=== PATIENT | female | born 1980 | race Caucasian/White ===

== ENCOUNTER → 2017-01-16 | Day surgery (SDC) | payer BC, MEDICAID, OTHER ==
--- NOTE | 2017-01-15 09:11 | MH ---
cc: AV MONTGOMERY MD DATE OF ADMISSION: 01/16/2017 REASON FOR ADMISSION This patient is a 36-year-old white female. She is being admitted to [facility] for elective uterine ablation. HISTORY OF PRESENT ILLNESS The patient is well-known to our practice. She recently came into the office complaining of extremely heavy periods with cramping. We followed up with pelvic sonogram which revealed a 10 cm cavity and a small fibroid situated in the subserosal area. We then discussed with her different modes of therapy for her bleeding and anemia and she elected to go with endometrial ablation with the knowledge that the surgery would have its limitations because of her uterine fibroid. PAST MEDICAL HISTORY Significant that the patient has had history of anemia because her heavy bleeding. GYNECOLOGIC HISTORY Significant that she is a 4, para 2 with a history of two vaginal births. PAST SURGICAL HISTORY Includes history of tonsillectomy, also history of appendectomy. She also underwent tubal ligation. FAMILY HISTORY Significant that her both father and mother have history of cancer and diabetes, and her father has a history of hypertension. SOCIAL HISTORY She is a non-smoker and does not admit to any alcohol abuse. REVIEW OF SYSTEMS Essentially noncontributory. PHYSICAL EXAMINATION GENERAL: The patient is well-developed, well-nourished, in no acute distress. VITAL SIGNS: Within normal limits. HEENT: Negative. CHEST: Clear to auscultation. CARDIOVASCULAR: Regular rate. ABDOMEN: Soft. Bowel sounds were positive. PELVIC: Examination revealed a slightly enlarged uterus. There is no adnexal masses palpable. EXTREMITIES: Reveal no cyanosis, clubbing or edema. NEUROPSYCHIATRIC: The patient is oriented x 3. No gross neurocranial deficit. IMPRESSION ON ADMISSION Fibroid uterus, hypermenorrhea and anemia. PLAN Endometrial ablation with using either the balloon ablation unit or the NovaSure ablation. Av Montgomery MD JSG/TLL /8:36 AM /8:44 AM
[~2017-01-16] VITALS: Ht 157.5 cm; Wt 60.4 kg
[~2017-01-16] MED LIST: CHLORHEXIDINE GLUCONATE 2 % 1 PACK (2 CLOTHS) TOPICAL PRN; DO NOT ADM ANY ANTICOAGULANT DRUGS PRN; ESTROGENS CONJUGATED VAG CREA 15 APPL/30 GM TUBE ONE; FAMOTIDINE 20 MG/2 ML VIAL ONE; GUMMCHW PO; INSULIN HUMAN REGULAR 1,000 UNITS/10 ML VIAL SQ PRN; LACTATED RINGER'S 1000 ML INJ 1,000 ML IV ONE; LACTATED RINGER'S 1000 ML IV PRN; METOPROLOL TARTRATE 25 MG TAB PO PRN; MIDAZOLAM HCL 2 MG/2 ML VIAL ONE; ONDANSETRON HCL 4 MG/2 ML VIAL IV PUSH ONE; ONDANSETRON HCL 4 MG/2 ML VIAL IV PUSH PRN; OXYTOCIN 10 UNIT/ML AMP ONE; PHENYLEPH/NS 1000 MCG/10 ML SYR IV ONE; POVIDONE IODINE 5% (ANTISEPSIS KIT) 4 APPLICATIONS EACH NARE PRN; PROPOFOL 200 MG/20 ML AMP IV ONE; SODIUM CHLORID 0.9% 500 ML IV PRN; ceFAZolin 2 GM PREMIX 50 ML IV SCH; ePHEDrine/NS 25 MG/5 ML SYR IV ONE; oxyCODONE/ACETAMINOPHEN 10 MG/325 MG TAB PO PRN; oxyCODONE/ACETAMINOPHEN 5 MG/325 MG TAB PO PRN
[2017-01-16 12:37] VITALS: BP 95/60; PULSE 68; RESP 18; TEMP 98.2; O2SAT 98
[2017-01-16 16:00] VITALS: BP 98/66; PULSE 71; RESP 16; TEMP 97.8; O2SAT 99
--- NOTE | 2017-01-21 11:50 | MP ---
cc: AV MONTGOMERY MD DATE OF SURGERY: 01/16/2017 PREOPERATIVE DIAGNOSIS Hypermenorrhea, anemia, fibroid uterus. POSTOPERATIVE DIAGNOSIS Hypermenorrhea, anemia, fibroid uterus. OPERATION Hysteroscopy and endometrial ablation using NovaSure. SURGEON Ulises ANESTHESIA General. ESTIMATED BLOOD LOSS Minimal. FINDINGS The uterus sounded to approximately 10 cm. CASEWORKER PROTECTIVE SERVICES None. PROBLEMS None. COMPLICATIONS None. PROCEDURE The patient was prepped and draped in the dorsal lithotomy position. A weighted speculum was placed in the posterior vaginal wall. The anterior lip of the cervix was grasped with a single-tooth tenaculum. A hysteroscope was then inserted into the endometrial cavity and the endometrial cavity appeared grossly irregular in contour. Next, the NovaSure ablation unit was then introduced into the endometrial cavity. It was set on 8 cycles for approximately a minute and 30 seconds and then withdrawn. Next, the hysteroscope was then used to make sure that all areas of the uterine-endometrial cavity was ablated and it was. It was removed. The tenaculum and speculum were removed. The patient returned to the recovery room in stable condition. Av Montgomery MD JSG/BT /3:08 PM /11:41 AM
== END | disposition home or self-care (01) ==
LOC: HSDC 11:52
PROVIDERS: ATTEND Obstetrics & Gynecology
DX: N92.0 Excessive and frequent menstruation with regular cycle (principal); D50.0 Iron deficiency anemia secondary to blood loss (chronic); D25.9 Leiomyoma of uterus, unspecified
CPT/HCPCS: 00952; 58563; J0690; J2250; J2370; J2405; J3010; J7120; J2590

== ENCOUNTER → 2017-10-07 | Outpatient (CLI) | payer BC, MEDICAID ==
[~2017-10-07] MED LIST changes: -CHLORHEXIDINE GLUCONATE 2 % 1 PACK (2 CLOTHS) TOPICAL PRN; -DO NOT ADM ANY ANTICOAGULANT DRUGS PRN; -ESTROGENS CONJUGATED VAG CREA 15 APPL/30 GM TUBE ONE; -FAMOTIDINE 20 MG/2 ML VIAL ONE; +GUAI600T11 PO; -INSULIN HUMAN REGULAR 1,000 UNITS/10 ML VIAL SQ PRN; -LACTATED RINGER'S 1000 ML INJ 1,000 ML IV ONE; -LACTATED RINGER'S 1000 ML IV PRN; +LEVO13.5 I-UTERINE; -METOPROLOL TARTRATE 25 MG TAB PO PRN; -MIDAZOLAM HCL 2 MG/2 ML VIAL ONE; -ONDANSETRON HCL 4 MG/2 ML VIAL IV PUSH ONE; -ONDANSETRON HCL 4 MG/2 ML VIAL IV PUSH PRN; -OXYTOCIN 10 UNIT/ML AMP ONE; -PHENYLEPH/NS 1000 MCG/10 ML SYR IV ONE; -POVIDONE IODINE 5% (ANTISEPSIS KIT) 4 APPLICATIONS EACH NARE PRN; -PROPOFOL 200 MG/20 ML AMP IV ONE; -SODIUM CHLORID 0.9% 500 ML IV PRN; -ceFAZolin 2 GM PREMIX 50 ML IV SCH; -ePHEDrine/NS 25 MG/5 ML SYR IV ONE; -oxyCODONE/ACETAMINOPHEN 10 MG/325 MG TAB PO PRN; -oxyCODONE/ACETAMINOPHEN 5 MG/325 MG TAB PO PRN
[2017-10-07 12:52] LABS: ANION GAP 8 MEQ/L (5-15); BICARBONATE 26.8 MEQ/L (21.0-32.0); BLOOD UREA NITROGEN 14 MG/DL (7-18); CHLORIDE 104 MEQ/L (98-107); GLOMERULAR FILTRATION RATE 142 ML/MIN (>89); GLUCOSE,FASTING 76 MG/DL (74-99); SODIUM (NA) 139 MEQ/L (136-145)
[2017-10-07 13:19] LABS: BHCG SCREEN QUALITATIVE LESS THAN 1 MIU/ML (0-5)
[2017-10-07 17:12] LABS: HEMOGLOBIN A1a 0.9 %; HEMOGLOBIN A1b 1.3 %; HEMOGLOBIN Ao 87.5 %; HEMOGLOBIN LA1C 1.7 %; HEMOGLOBIN P3 3.2 %
== END ==
LOC: CPRE 11:12
PROVIDERS: ATTEND Obstetrics & Gynecology
DX: Z01.812 Encounter for preprocedural laboratory examination (principal); N92.0 Excessive and frequent menstruation with regular cycle
CPT/HCPCS: 36415; 80048; 83036; 84703

== ENCOUNTER 2017-10-15 05:09 | Observation (INO) | payer BC, MEDICAID ==
[~2017-10-15] VITALS: Ht 157.5 cm; Wt 59.8 kg
[~2017-10-15 05:09] MED LIST changes: -GUMMCHW PO
[2017-10-15] MEDS ORDERED: METOPROLOL TARTRATE 25 MG TAB PO PRN (05:45)
[2017-10-15] MEDS ORDERED: GABAPENTIN 300 MG CAP PO ONE (05:45)
[2017-10-15] MEDS ORDERED: POVIDONE IODINE 5% (ANTISEPSIS KIT) 4 APPLICATIONS EACH NARE PRN (05:45)
[2017-10-15] MEDS ORDERED: ceFAZolin 2 GM PREMIX 50 ML IV SCH (05:45)
[2017-10-15] MEDS ORDERED: CHLORHEXIDINE GLUCONATE 2 % 1 PACK (2 CLOTHS) TOPICAL PRN (05:45)
[2017-10-15] MEDS ORDERED: ACETAMINOPHEN 1000 MG/100 ML 100 ML IV ONE (05:45)
[2017-10-15] MEDS ORDERED: SODIUM CHLORID 0.9% 500 ML IV PRN (05:45)
[2017-10-15] MEDS: LACTATED RINGER'S 1000 ML IV PRN ×2 (06:25→22:16)
[2017-10-15] MEDS ORDERED: VASOPRESSIN 20 UNITS/ML VIAL (IVTITR) ONE (06:59)
[2017-10-15] MEDS ORDERED: BUPIVACAINE/EPINEPHRINE 0.25% PF 30 ML VIAL ONE (06:59)
[2017-10-15] MEDS ORDERED: ESTROGENS CONJUGATED VAG CREA 15 APPL/30 GM TUBE ONE (06:59)
[2017-10-15] MEDS ORDERED: FLUORESCEIN SOD 10% SOLN 500 MG/5 ML AMP ONE (09:29)
[2017-10-15] MEDS ORDERED: DO NOT ADM ANY ANTICOAGULANT DRUGS PRN (10:29)
[2017-10-15] MEDS ORDERED: SODIUM CHLORIDE 0.9% FLUSH 10 ML FLUSH IV FLUSH PRN (10:45)
[2017-10-15] MEDS ORDERED: diphenhydrAMINE HCL 25 MG CAP PO PRN (10:45)
[2017-10-15] MEDS ORDERED: IBUPROFEN 600 MG TAB PO PRN (10:45)
[2017-10-15] MEDS ORDERED: ONDANSETRON ODT 4 MG TAB PO PRN (10:45)
[2017-10-15] MEDS ORDERED: ONDANSETRON HCL 4 MG/2 ML VIAL IVP PRN (10:45)
--- NOTE | 2017-10-15 10:47 | HHI.PR ---
Immediate Post Op Note Procedure Date: Oct 15, 2017 Pre Op Diagnosis: (1) Dysmenorrhea (2) Heavy menstrual bleeding Post Op Diagnosis: (1) Dysmenorrhea (2) Heavy menstrual bleeding Surgeon: Leonardo Villarreal Cattle Feeder(s): Dr. Mccarthy Procedure: TLH, BS, cysto. Findings: normal uterus, cervix, previously ligated fallopian tubes with filsche clips, normal right ovary, left ovary with small 2cm hemorrhage cyts. Normal cystoscopy , hyperemic bladder mucosa. Complications: none Specimen(s) removed: uterus, cervix, bilateral fallopian tubes Estimated blood loss: 200 Anesthesia: General Drains: None Fluids: 2L LR IVF Urinary Output (mLs): 200 (estimate, unable to calcualte due to cysto and no recording prior, was grossly normal, green due t IV flurosecne.) Patient to: PACU Patient Condition: Good Date/Time of Procedure: SEE SURGICAL CARE RECORD (see dicated noate # [id number]) Leonardo Villarreal MD Oct 15, 2017 10:47
[2017-10-15] MEDS ORDERED: *MEPERIDINE 25 MG INJ VIAL PERIprocedural Use ONLY ONE (10:50)
[2017-10-15] MEDS ORDERED: IBUP-232 PO (10:55)
[2017-10-15] MEDS ORDERED: OXYC1CAP PO (10:57)
[2017-10-15] MEDS ORDERED: KETOROLAC TROMETHAMINE 30 MG/ML (IVP) VIAL ONE (10:57)
[2017-10-15] MEDS ORDERED: GABA100C4 PO (10:57)
--- NOTE | 2017-10-15 10:59 | HHI.DCPOC ---
Discharge Care Plan Diagnosis: (1) Dysmenorrhea (2) Heavy menstrual bleeding Report Symptoms to Your Doctor -Temperature above 100.5 degrees -Redness, of incision or excessive or foul smelling drainage -Unusual pain or calf pain -Increased vaginal bleeding -Painful or difficulty urinating -Feelings of extreme sadness or anxiety after 2 weeks Goals to Promote Your Health * To prevent worsening of your condition and complications * To maintain your health at the optimal level Directions to Meet Your Goals Take your medications as prescribed Follow your dietary instruction Follow activity as directed Ensure plenty of rest for recovery Drink fluids for hydration Keep your appointments as scheduled Take your immunizations and boosters as scheduled If your symptoms worsen call your PCP, if no PCP go to Urgent Care Center or Emergency Room Smoking is Dangerous to Your Health. Avoid second hand smoke Call the 24-hour crisis hotline for domestic abuse at Leonardo Villarreal MD Oct 15, 2017 10:59
[2017-10-15] MEDS ORDERED: LACTATED RINGER'S 1000 ML INJ 1,000 ML IV SCH (11:00)
[2017-10-15] MEDS: KETOROLAC TROMETHAMINE 30 MG/ML (IVP) VIAL IVP SCH ×3 (11:00→22:15)
[2017-10-15] MEDS: DOCUSATE SODIUM 100 MG CAP PO SCH ×2 (11:00→21:00)
[2017-10-15 11:58] VITALS: BP 92/65; PULSE 71; RESP 18; TEMP 97.8; O2SAT 100
[2017-10-15] MEDS ORDERED: NORMOSOL R INJ 1,000 ML IV ONE (12:00)
[2017-10-15] MEDS ORDERED: ePHEDrine/NS 25 MG/5 ML SYRINGE IV ONE (12:00)
[2017-10-15] MEDS ORDERED: KETOROLAC TROMETHAMINE 30 MG/ML (IVP) VIAL IV PUSH ONE (12:00)
[2017-10-15] MEDS ORDERED: ROCURONIUM INJ 50 MG/5 ML SYRINGE IV PUSH ONE (12:00)
[2017-10-15] MEDS ORDERED: DEXAMETHASONE SOD PHOS 4 MG/ML VIAL IV ONE (12:00)
[2017-10-15] MEDS ORDERED: NEOSTIGMINE 5 MG/5 ML SYRINGE IV PUSH ONE (12:00)
[2017-10-15] MEDS ORDERED: GLYCOPYRROLATE 1 MG/5 ML SYRINGE IV PUSH ONE (12:00)
[2017-10-15] MEDS ORDERED: LIDOCAINE HCL 1% PF 5 ML SYRINGE OTHER ONE (12:00)
[2017-10-15] MEDS ORDERED: ONDANSETRON HCL 4 MG/2 ML VIAL IV ONE (12:00)
[2017-10-15] MEDS ORDERED: PROPOFOL 200 MG/20 ML AMP IV ONE (12:00)
[2017-10-15] MEDS: ACETAMINOPHEN 500 MG CPLT PO SCH ×2 (15:02→23:39)
[2017-10-15] MEDS: GABAPENTIN 100 MG CAP PO SCH ×2 (15:03→18:15)
[2017-10-15 15:05] VITALS: BP 97/59; PULSE 86; RESP 18; TEMP 98.1; O2SAT 100
--- NOTE | 2017-10-15 18:39 | HHI.PR ---
Subjective Remarks Doing well, pain is well controlled w/o narcotics, eating well, ambulating, voiding, . Objective Vital Signs Vital Signs Date Time Temp Pulse Resp B/P (MAP) Pulse Ox O2 Delivery O2 Flow Rate FiO2 10/15/17 15:05 98.1 86 18 97/59 (72) 100 10/15/17 11:58 97.8 71 18 92/65 (74) 100 10/15/17 11:22 97.6 63 20 91/52 (65) 100 Nasal Cannula 2 10/15/17 11:15 63 20 91/52 (65) 100 Nasal Cannula 2 10/15/17 11:00 63 20 91/52 (65) 100 Nasal Cannula 2 10/15/17 10:45 63 20 89/54 (66) 100 Nasal Cannula 2 10/15/17 10:31 97.6 75 20 90/55 (67) 100 Nasal Cannula 2 10/15/17 06:30 99.0 68 20 105/70 (82) 100 I/O 10/14/17 10/14/17 10/14/17 10/15/17 10/15/17 10/15/17 07:00 15:00 23:00 07:00 15:00 23:00 Intake Total 2000 ml Output Total 200 ml Balance 1800 ml Intake Other 2000 ml Output Estimated Blood Loss 200 ml # Sanitary Pads 1 Pads Objective Remarks Chest is clear, regular rate and rhythm. Abdomen is soft and non-distended. Incisions is clean and dry. Ext no CCE. A/P Assessment and Plan s/p TLH, BS, cysto for dysmenorrhea / AUB Post Op Day 0, Doing well Home tomorrow AM, discussed post op precautions, restrictions and expectations. FU as scheduled in office ~ 2 weeks. Leoanrdo Villarreal MD Oct 15, 2017 18:39
[2017-10-15 20:30] VITALS: BP 89/56; PULSE 98; RESP 20; TEMP 98.7
[2017-10-15] MEDS ORDERED: SODIUM CHLORIDE 0.9% FLUSH 10 ML FLUSH IV FLUSH SCH (21:00)
--- NOTE | 2017-10-16 05:47 | MP ---
cc: DADA DAVE MD DATE OF SURGERY 10/15/2017 PREOPERATIVE DIAGNOSES 1. Dysmenorrhea. 2. Heavy menstrual bleeding. POSTOPERATIVE DIAGNOSES 1. Dysmenorrhea. 2. Heavy menstrual bleeding. SURGERY 1. Total laparoscopic hysterectomy. 2. Bilateral salpingectomy. 3. Diagnostic cystoscopy. Surgeon: Dr. Dave Client Services Account Manager Surgeon: Dr. Mccann SPECIMEN REMOVED Uterus, cervix, bilateral fallopian tubes, sent all together. FINDINGS 1. Pelvis with minimal adhesions. 2. Normal right and left ovaries. 3. Small 2-cm left hemorrhagic cyst 4. Normal uterus, cervix. 5. Previously ligated fallopian tubes with Filshie clips. 6. Normal external female genitalia, vagina and cervix. Photo documentation was obtained of above ANESTHESIA General endotracheal. ANTIBIOTICS 2g Ancef preoperatively. ESTIMATED BLOOD LOSS 300 cc. FLUID OUTPUT 2 liters lactated Ringer's. URINE Unable to be calculated due to cysto but grossly normal, dyed green for cystoscopy with IV fluorescein. COMPLICATIONS None. COUNTS Correct x 2. DVT PROPHYLAXIS sequential compression devices throughout the case. DISPOSITION Stable to PACU. INDICATIONS This patient is a 37-year-old female who was seen in the outpatient setting for abnormal uterine bleeding and dysmenorrhea. She had failed medical management with a endometrial ablation then Jyoti IUD and was consented for the above procedure, outpatient EMB was benign. Please see H&P for details. DESCRIPTION OF PROCEDURE The patient was taken to the operating room and placed in lithotomy and Yellofin stirrups with the arms tucked. The abdomen and vagina were prepped and draped in a sterile fashion. Rivers was inserted. The uterus sounded to 8 cm. A large V-CARE uterine manipulator was then inserted and suture was used to secure the V-CARE to the cervix. Attention was turned to the abdomen. Local 0.25% with epinephrine was used to anesthetize all trocar sites and a 10-mm vertical umbilical incision was made and with direct optical view technique the trocar was inserted and the abdomen insufflated and the survey performed. Photo documentation was obtained. A single 5-mm right lower quadrant and two left lower quadrant 5-mm ports were inserted with visualization intraabdominally. Using an Enseal laparoscopic device the round ligaments and uteroovarian ligaments were desiccated and transected bilaterally with serial dissection down the anterior and posterior leaves of the broad ligament. The uterine arteries were skeletonized. The bladder flap was developed with ease. All surgical sites were well away from the ureters which were visualized bilaterally peristalsing. The uterine arteries were grasped, desiccated and transected bilaterally. Colpotomy was performed using monopolar energy. The uterus was removed from the field. There was some bleeding from the vaginal cuff and hemostasis was achieved with the Enseal. Using a 2-0 PDS Stratafix suture the cuff was closed in a running unlocked fashion from left to right and backstitched once to the midline and cut flush with the cuff. The abdomen was irrigated and found to be hemostatic. A cystoscopy was performed. IV fluorescein was given and bilateral ureteral reflux was appreciated. The urine was somewhat bloody but the bladder was surveyed and there was no iatrogenic injury. It was noted to be hyperemic. The Rivers was removed. The abdomen was surveyed again and desufflated. The umbilical fascia was closed with a single 0 Vicryl and all skin was closed with 4-0 Monocryl and skin glue applied overlaying. The patient was awoken from anesthesia and transferred to the PACU in stable condition. MD DESTINEE Hale/ANNIA /10:30 AM /4:59 AM SHEY
[2017-10-16 05:58] LABS: AUTOMATED NEUTROPHIL # 8.3 TH/MM3 (1.8-7.7); BASOPHIL % 0.3 % (0.0-2.0); EOSINOPHIL % 0.1 % (0.0-4.0); HEMOGLOBIN 10.4 GM/DL (11.6-15.3); LYMPH % 23.1 % (9.0-44.0); LYMPHOCYTE # 2.7 TH/MM3 (1.0-4.8); MEAN CELL VOLUME 87.8 FL (80.0-100.0); MEAN CORPUSCULAR HEMOGLOBIN 30.3 PG (27.0-34.0); MEAN CORPUSCULAR HGB CONC 34.5 % (32.0-36.0); MEAN PLATELET VOLUME 8.7 FL (7.0-11.0); MONO % 5.6 % (0.0-8.0); MONOCYTE # 0.7 TH/MM3 (0-0.9); NEUT % 70.9 % (16.0-70.0); PLATELET COUNT 325 TH/MM3 (150-450); RED BLOOD COUNT 3.42 MIL/MM3 (4.00-5.30); RED CELL DISTRIBUTION WIDTH 13.2 % (11.6-17.2); WHITE BLOOD COUNT 11.7 TH/MM3 (4.0-11.0)
[2017-10-16 06:22] LABS: BICARBONATE 25.9 MEQ/L (21.0-32.0); CALCIUM 8.1 MG/DL (8.5-10.1); CREATININE 0.64 MG/DL (0.50-1.00)
[2017-10-16] MEDS: GABAPENTIN 100 MG CAP PO SCH (07:26)
[2017-10-16] MEDS: DOCUSATE SODIUM 100 MG CAP PO SCH (07:26)
[2017-10-16] MEDS: ACETAMINOPHEN 500 MG CPLT PO SCH (07:27)
--- NOTE | 2017-10-16 07:29 | HHI.PR ---
Subjective Remarks Doing well, pain is well controlled, eating well, + flatus. Objective Vital Signs Vital Signs Date Time Temp Pulse Resp B/P (MAP) Pulse Ox O2 Delivery O2 Flow Rate FiO2 10/15/17 20:30 98.7 98 20 89/56 (67) 10/15/17 15:05 98.1 86 18 97/59 (72) 100 10/15/17 11:58 97.8 71 18 92/65 (74) 100 10/15/17 11:22 97.6 63 20 91/52 (65) 100 Nasal Cannula 2 10/15/17 11:15 63 20 91/52 (65) 100 Nasal Cannula 2 10/15/17 11:00 63 20 91/52 (65) 100 Nasal Cannula 2 10/15/17 10:45 63 20 89/54 (66) 100 Nasal Cannula 2 10/15/17 10:31 97.6 75 20 90/55 (67) 100 Nasal Cannula 2 I/O 10/15/17 10/15/17 10/15/17 10/16/17 10/16/17 10/16/17 07:00 15:00 23:00 07:00 15:00 23:00 Intake Total 2000 ml Output Total 200 ml Balance 1800 ml Intake Other 2000 ml Output Estimated Blood Loss 200 ml # Sanitary Pads 1 Pads Result Diagram: 10/16/17 0510 10/16/17 0510 Objective Remarks Chest is clear, regular rate and rhythm. Abdomen is soft and non-distended. Incisions is clean and dry. Ext no CCE. A/P Assessment and Plan s/p TLH, BS, cysto for dysmenorrhea / AUB Post Op Day 1, Doing well, AM labs noted and appropriate. Home today, discussed post op precautions, restrictions and expectations. FU as scheduled in office ~ 2 weeks. Leonardo Villarreal MD Oct 16, 2017 07:29
[2017-10-16 07:30] VITALS: BP 99/68; PULSE 68; RESP 18; TEMP 98.3; O2SAT 99
== END 2017-10-16 09:17 | disposition home or self-care (01) ==
LOC: HSDC 05:09 → HSDI 10:42 → H1EA 11:36
PROVIDERS: ADMIT Obstetrics & Gynecology; ATTEND Obstetrics & Gynecology
DX: N94.6 Dysmenorrhea, unspecified (principal); N92.0 Excessive and frequent menstruation with regular cycle; N83.8 Other noninflammatory disorders of ovary, fallopian tube and broad ligament
CPT/HCPCS: 00840; 58571; 80048; 85025; 86850; 86900; 86901; 88307; 94150; 96360; 96361; G0378; J0131; J0690; J1100; J1885; J2175; J2405; J2710; J7120